=== PATIENT | male | born 1940 | race Caucasian/White ===

== ENCOUNTER 2016-10-05 21:32 | Emergency (ER) | payer MEDICARE, BC ==
[2016-10-06] MEDS ORDERED: Tobramycin 0.3% OPHTH.OINT* 3.5 GM TUBE (OPTH OINTMENT) ONE (00:06)
[2016-10-06] MEDS ORDERED: Tobramycin 0.3% OPHTH.OINT* 3.5 GM TUBE (OPTH OINTMENT) BOTH EYES ONE (00:07)
[2016-10-06 01:33] VITALS: BP 158/69
--- NOTE | 2016-10-06 03:02 | ED ---
I, Oh,Néstor, scribed for Dylan Arriaga MD on 10/05/16 at 2328 . Lower Extremity - HPI Summary HPI Summary: This 76 y/o male presents to ED for LLE pain since yesterday. Pt slipped on his deck steps and scraped his LLE craven. Pt reports bleeding at time of onset, but it is currently controlled and bandaged. Negative fever or chill. PMHx includes Parkinson, prostate CA, atopic dermatitis, and spinal laminectomy. Primary care involves Dr. Amaya in [place]. Pt is occasional drinker. - History of Current Complaint Chief Complaint: EDExtremityLower Stated Complaint: FALL/LT LEG LAC Hx Obtained From: Patient Mechanism Of Injury: Blunt Trauma Onset of Pain: Immediate Pain Intensity: 3 Pain Scale Used: 0-10 Numeric Location: Is Discrete @ - LLE anterior craven Character Of Pain: Dull Associated Signs And Symptoms: Positive: Other - abrasion Aggravating Factor(s): Nothing Alleviating Factor(s): Nothing - Allergies/Home Medications Allergies/Adverse Reactions: Allergies Allergy/AdvReac Type Severity Reaction Status Date / Time No Known Allergies Allergy Verified 10/05/16 23:03 PMH/Surg Hx/FS Hx/Imm Hx Neurological History: Reports: Other Neuro Impairments/Disorders - Parkinson Infectious Disease History: No Infectious Disease History: Denies: Traveled Outside the [place] in Last 30 Days - Family History Known Family History: Negative: Hypertension - Social History Alcohol Use: None Hx Substance Use: No Substance Use Type: Reports: None Hx Tobacco Use: No Smoking Status (MU): Never Smoked Tobacco Review of Systems Negative: Fever, Chills Positive: Other - abrasion/laceration on LLE anterior craven All Other Systems Reviewed And Are Negative: Yes Physical Exam - Summary Physical Exam Summary: The patient is well-nourished in no acute distress and in no acute pain. The skin is noted with 10 cm abrasion/avulsion on LLE anterior craven. Skin thin and friable. HEENT: The head is normocephalic and atraumatic. The pupils are equal and reactive. The conjunctivae are clear but WITH drainage. Nares are patent and without drainage. Mouth reveals moist mucous membranes and the throat is without erythema and exudate. The external ears are intact. The ear canals are patent and without drainage. The tympanic membranes are intact. Neck is supple with full range of motion and non-tender. There are no carotid bruits. There is no neck vein distension. Respiratory: Chest is non-tender. Lungs are clear to auscultation and breath sounds are symmetrical and equal. Cardiovascular: Hear is regular rate and rhythm. There is no murmur or rub auscultated. There is no peripheral edema and pulses are symmetrical and equal. Abdomen: The abdomen is soft and non-tender. There are normal bowel sounds heard in all four quadrants and there is no organomegaly palpated. Musculoskeletal: There is no back pain noted. Extremities are non-tender with full range of motion. There is good capillary refill. There is no peripheral edema or calf tenderness elicited. Neurological: Patient is alert and oriented to person, place and time. The patient has symmetrical motor strength in all four extremities. Cranial nerves are grossly intact. Deep tendon reflexes are symmetrical and equal in all four extremities.Tremor at rest secondary to Parkinson. Psychiatric: The patient has an appropriate affect and does not exhibit any anxiety or depression. Triage Information Reviewed: Yes Vital Signs On Initial Exam: Initial Vitals Temp Pulse Resp BP Pulse Ox 98.2 F 82 18 143/69 100 10/05/16 21:33 10/05/16 21:33 10/05/16 21:33 10/05/16 21:33 10/05/16 21:33 Vital Signs Reviewed: Yes Procedures - Laceration/Wound Repair 1 Location: lower extremity - LLE anterior craven Description: Linear Length, Depth and Shape: 10 cm Laceration/Wound Explored: clean - Cleaned with NS and skin debried Closure: SteriStrips Diagnostics - Vital Signs Vital Signs Temp Pulse Resp BP Pulse Ox 10/05/16 22:08 99.4 F 74 15 145/72 100 10/05/16 21:33 98.2 F 82 18 143/69 100 - Laboratory Lab Statement: Any lab studies that have been ordered have been reviewed, and results considered in the medical decision making process. Lower Extremity Course/Dx - Course Assessment/Plan: This 76 y/o male presents to ED for abrasion/avulsion on LLE anterior craven after slipping on deck steps. Upon examination skin around wound is noted thin and friable. Wound was cleaned with NS and debried of skin. SteriStrep and dressing applied. Pt is also incidentally noted with eye discharge, and was discharged with Tobramycin. - Diagnoses Provider Diagnoses: avulsion/abrasion on LLE craven, Conjunctivitis Discharge - Discharge Plan Condition: Stable Disposition: HOME Patient Education Materials: Abrasion (ED), Skin Avulsion (ED), Conjunctivitis (ED) Referrals: Non Staff,Doctor [Primary Care Provider] - 2 Days Additional Instructions: Be sure to follow up with your Primary care provider in your town in next 2 days. Please be sure to control your conjunctivitis and eye discharge with tobramycin and warm soak. Apply topically to both eyes two times daily. The documentation as recorded by the [employer] [facility] accurately reflects the service I personally performed and the decisions made by me, Dylan Arriaga MD.
== END 2016-10-06 00:45 | disposition home or self-care (01) ==
LOC: ED 21:32
DX: S80.812A Abrasion, left lower leg, initial encounter (principal); H10.9 Unspecified conjunctivitis; W01.0XXA Fall on same level from slipping, tripping and stumbling without subsequent striking against object, initial encounter; Y93.9 Activity, unspecified; Y92.9 Unspecified place or not applicable
CPT/HCPCS: 99282; A9270-GY